=== PATIENT | female | born 1950 | race Caucasian/White ===

== ENCOUNTER 2017-11-13 06:50 | Emergency (ER) | payer MEDICARE ==
[~2017-11-13] VITALS: Ht 167.6 cm; Wt 102.1 kg
--- NOTE | 2017-11-13 07:04 | NUR ---
YESENIA 878 FROM BOARD AND CARE FOR "SHAKING AND DIZZINESS X 48HRS". PT STATES " I HAVENT BEEN SLEEPING D/T MY NEIGHBOR KEEPING ME AWAKE". PT IS AAOX4. SKIN WNL. VSS. RESP EVEN AND UNLABORED. NO S/S OF ACUTE DISTRESS NOTED. PT PLACED ON INFUSION PHARMACIST AND POX. PT SAFETY AND COMFORT MEASURES IN PLACE. BEDSIDE FOR EVAL.
--- NOTE | 2017-11-13 07:27 | NUR ---
REPORT GIVEN TO SERGEI MENDOZA FOR JESSICA.
[2017-11-13] MEDS ORDERED: IV NS 0.9% 1,000 ML BAG IV ONE (07:30)
[2017-11-13 07:38] LABS: BASOPHILS % (AUTO) 0.3 % (0.0-2.0); EOSINOPHILS % (AUTO) 3.7 % (0.0-6.0); HEMATOCRIT 40 % (33-45); HEMOGLOBIN 13.6 g/dL (11.5-14.8); LYMPHOCYTES # (AUTO) 2.5 /CMM (0.8-4.8); MEAN CORPUSCULAR HGB CONC 34 g/dl (31.0-36.0); MEAN CORPUSCULAR VOLUME 81 fL (82-100); MONOCYTES # (AUTO) 0.4 /CMM (0.1-1.30); PLATELET COUNT (AUTO) 216 /CMM (150-450); RDW COEFFICIENT OF VARIATION 13.9 (11.5-15.0); RED BLOOD CELL COUNT(AUTO) 4.95 MIL/uL (4.0-5.2); WHITE BLOOD COUNT (AUTO) 7.3 K/uL (4.3-11.0)
[2017-11-13 07:42] LABS: CALCIUM, SERUM 9.8 mg/dL (8.5-10.1); CREATININE 0.9 mg/dL (0.6-1.3); POTASSIUM 3.6 mmol/L (3.5-5.1)
[2017-11-13] MEDS ORDERED: ONDANSETRON HCL/PF 4 MG/2 ML VIAL ONE (07:58)
[2017-11-13] MEDS ORDERED: ONDANSETRON 4 MG TAB.RAPDIS SL ONE (08:00)
--- NOTE | 2017-11-13 08:14 | NUR ---
OKAY TO GIVE ZOFRAN IV INSTEAD OF PO PER DR. POWELL.
[2017-11-13 08:30] LABS: APPEARANCE,URINE SL CLOUDY (CLEAR); BILIRUBIN,URINE NEGATIVE (NEGATIVE); BLOOD, URINE NEGATIVE Ery/uL (NEGATIVE); COLOR,URINE YELLOW (YELLOW); KETONES,URINE NEGATIVE (NEGATIVE); LEUKOCYTE ESTERASE ,URINE TRACE (NEGATIVE); NITRITE, URINE NEGATIVE (NEGATIVE); PROTEIN,URINE NEGATIVE (NEGATIVE); UGLUCOSE NEGATIVE (NEGATIVE); UROBILINOGEN,URINE 0.2 EU/dL (0.2)
[2017-11-13 08:53] LABS: BACTERIA,URINE Moderate /HPF (None Seen); SQUAMOUS EPITHELIAL CELL,UR Few /HPF (None Seen)
[2017-11-13 08:54] LABS: RBC,URINE 0-2 /HPF (0-2)
--- NOTE | 2017-11-13 09:47 | NUR ---
Called Aleksey for transport, [facility] @[facility]. trip number [phone]. Daniel
[2017-11-13 10:15] VITALS: BP 139/75
--- NOTE | 2017-11-13 10:18 | NUR ---
IV removed. Catheter intact and site benign. Pressure and 4x4 applied to site. No bleeding noted. Patient discharged to board and care in stable condition. Written and verbal after care instructions given. Patient verbalizes understanding of instruction. Report given to emt at bedside. Patient discharged via private ambulance.
== END 2017-11-13 10:18 | disposition home or self-care (01) ==
LOC: ER 06:52
DX: G47.00 Insomnia, unspecified (principal); R42 Dizziness and giddiness; E10.9 Type 1 diabetes mellitus without complications; R82.99 Other abnormal findings in urine
CPT/HCPCS: 36415; 80048; 81001; 85025; 87086; 96360; 99284; A4606; J2405; J7030; 81000-TC; Z7610

== ENCOUNTER 2019-06-12 02:37 | Emergency (ER) | payer MEDICARE ==
[~2019-06-12] VITALS: Ht 167.6 cm; Wt 104.3 kg
--- NOTE | 2019-06-12 02:55 | NUR ---
[facility] BED [facility]. AAOX4. NO RESP DISTRESS NOTED. BROUGHT IN ON GURNEY. PT BROUGHT IN FOR OUND LEVEL FALL. PT REPORTED THAT SHE TRIPPED AND FELL HITTING HER FACE AT THE CORNER OF THE BED AND CAUSINF R WRIST PAIN. PT DENIES LOSS OF CONSCIOUSNESS PRE AND POST INCIDENT. PT IS NOTED W/ PURPLISH BLUISH DISCOLORATION WITH ABBRASSION ON HER R EYE EXTENDING TO THE R FACE. WRIST IS NOTED W/ LIMITED ROM D/T PAIN. AT BEDSIDE FOR EVAL.
[2019-06-12] MEDS ORDERED: HYDROCODONE/APAP 5/325MG 1 EACH TABLET ONE ×2 (04:25→08:22)
[2019-06-12] MEDS: HYDROCODONE/APAP 5/325MG 1 EACH TABLET PO ONE ×2 (04:45→08:35)
--- NOTE | 2019-06-12 05:05 | NUR ---
[facility] ETA 08
--- NOTE | 2019-06-12 07:27 | NUR ---
CALLED [facility] TO NOTIFY PT IS COMING BACK. SPOKE WITH [facility] - [facility] FOR REPORT.
--- NOTE | 2019-06-12 08:35 | NUR ---
Patient picked up by [facility] [address] in stable condition. Patient will be brought to [facility]. Written and verbal after care instructions given. Patient verbalizes understanding of instruction. Provided w CD images.
[2019-06-12 08:37] VITALS: BP 137/65
== END 2019-06-12 08:39 | disposition home or self-care (01) ==
LOC: ER 02:38
DX: S52.571A Other intraarticular fracture of lower end of right radius, initial encounter for closed fracture (principal); S60.851A Superficial foreign body of right wrist, initial encounter; S00.83XA Contusion of other part of head, initial encounter; E10.9 Type 1 diabetes mellitus without complications; W18.09XA Striking against other object with subsequent fall, initial encounter; Y93.89 Activity, other specified; Y92.89 Other specified places as the place of occurrence of the external cause; Y99.8 Other external cause status
CPT/HCPCS: 70450-TC; 70486-TC; 72125-TC; 73110